=== PATIENT | female | born 1990 | race Caucasian/White ===

== ENCOUNTER 2025-09-11 20:40 | Observation (INO) ==
[2025-09-11] MEDS: KETOROLAC 30 MG/ML VIAL IV ONE (21:45)
[2025-09-11] MEDS: PANTOPRAZOLE 40 MG VIAL IV ONE (21:45)
[2025-09-11] MEDS: 0.9 % SODIUM CHLORIDE 1,000 ML IV ONE (21:46)
[2025-09-11] MEDS: ONDANSETRON 4 MG/2 ML VIAL IV ONE (21:46)
[2025-09-11] MEDS: ACETAMINOPHEN 1,000 MG/100 ML BAG IV ONE (21:49)
[2025-09-11 22:11] LABS: Basophils # (Auto) 0.03 K/mcL (0.00-0.30); Basophils % (Auto) 0.3 % (0.0-2.0); Eosinophils # (Auto) 0.22 K/mcL (0.00-0.70); Eosinophils % (Auto) 2.1 % (0.0-7.0); Hematocrit 43.3 % (34.1-44.9); Hemoglobin 14.1 g/dL (11.2-15.7); Lymphocytes # (Auto) 3.49 K/mcL (1.50-4.80); Lymphocytes % (Auto) 33.8 % (15.5-49.0); Mean Corpuscular HGB Conc 32.6 g/dL (31.0-36.0); Monocytes # (Auto) 0.50 K/mcL (0.10-0.90); Monocytes % (Auto) 4.8 % (1.0-12.0); Neutrophils % (Auto) 58.9 % (38.0-78.0); Platelet Count 307 K/mcL (140-440); RBC 4.80 M/mcL (3.59-5.38); WBC 10.3 K/mcL (4.5-11.0)
[2025-09-11 23:41] LABS: ALT/SGPT 10 U/L (<40); AST/SGOT 13 U/L (<32); Albumin 4.3 gm/dL (3.2-5.2); Albumin/Globulin Ratio 1.5 (1.0-2.3); Alkaline Phosphatase 62 U/L (39-117); Anion Gap 15.0 (8.0-16.0); Bilirubin,Total 0.3 mg/dL (0.1-1.0); Blood Urea Nitrogen 13 mg/dL (6-20); Calcium 9.2 mg/dL (8.6-10.4); Carbon Dioxide 19 mmol/L (22-30); Chloride 105 mmol/L (96-108); Globulin 2.9 gm/dL (2.2-3.7); Glucose 105 mg/dL (70-105); Potassium 3.9 mmol/L (3.3-5.1); Sodium 139 mmol/L (133-145)
[2025-09-12] MEDS ORDERED: HYDROmorphone 0.5 MG/0.5 ML SYRINGE IV PRN (00:55)
[2025-09-12] MEDS: 0.9 % SODIUM CHLORIDE 1,000 ML IV SCH (01:39)
[2025-09-12] MEDS: PIPERACILLIN SODIUM/TAZOBACTAM 4.5 GM in DEXTROSE 5% IN WATER 50 ML IV SCH (02:05)
[2025-09-12] MEDS: LACTATED RINGERS 1,000 ML IV SCH (03:02)
[2025-09-12] MEDS: PIPERACILLIN SODIUM/TAZOBACTAM 4.5 GM in DEXTROSE 5% IN WATER 100 ML IV SCH (07:04)
[2025-09-12] MEDS: POLYETHYLENE GLYCOL 3350 17 GM PACKET PO SCH (08:15)
[2025-09-12] MEDS: GABAPENTIN 300 MG CAPSULE PO SCH ×2 (08:15→20:21)
[2025-09-12] MEDS ORDERED: DEXAMETHASONE 10 MG/ML VIAL ONE (14:47)
[2025-09-12] MEDS ORDERED: PHENYLephrine 1 MG/10 ML SYRINGE (ANEST) ONE (14:47)
[2025-09-12] MEDS ORDERED: ROCURONIUM 10 MG/ML ML IV ONE (14:47)
[2025-09-12] MEDS ORDERED: ONDANSETRON 4 MG/2 ML VIAL ONE (14:47)
[2025-09-12] MEDS ORDERED: KETOROLAC 30 MG/ML VIAL ONE (14:47)
[2025-09-12] MEDS ORDERED: MIDAZOLAM 2 MG/2 ML VIAL ONE (14:48)
[2025-09-12] MEDS ORDERED: ePHEDrine 50 MG/5 ML SYRINGE (ANEST) IV ONE (14:48)
[2025-09-12] MEDS ORDERED: fentaNYL 100 MCG/2 ML VIAL ONE ×2 (14:48→15:12)
[2025-09-12] MEDS ORDERED: PROPOFOL 200 MG/20 ML VIAL IV ONE (14:48)
[2025-09-12] MEDS ORDERED: SUGAMMADEX SODIUM 200 MG/2 ML VIAL IV ONE (15:33)
[2025-09-12] MEDS ORDERED: METOPROLOL TARTRATE 5 MG/5 ML VIAL IV PRN (15:38)
[2025-09-12] MEDS ORDERED: NALOXONE HCL 0.4 MG/ML VIAL IV PRN (15:38)
[2025-09-12] MEDS ORDERED: ePHEDrine 50 MG/ML AMPUL IV PRN (15:38)
[2025-09-12] MEDS ORDERED: MEPERIDINE 25 MG/ML VIAL IV PRN (15:38)
[2025-09-12] MEDS ORDERED: DROPERIDOL 5 MG/2 ML VIAL IV PRN (15:38)
[2025-09-12] MEDS ORDERED: diphenhydrAMINE 50 MG/ML VIAL IV PRN (15:38)
[2025-09-12] MEDS ORDERED: ONDANSETRON 4 MG/2 ML VIAL IV PRN (15:38)
[2025-09-12] MEDS ORDERED: IPRATROPIUM/ALBUTEROL 3 ML AMPUL.NEB NEB PRN (15:38)
[2025-09-12] MEDS: fentaNYL 100 MCG/2 ML VIAL IV PRN (16:00)
[2025-09-12] MEDS: ONDANSETRON 4 MG/2 ML VIAL IV PRN (16:13)
[2025-09-12] MEDS: METHOCARBAMOL 1,000 MG/10 ML VIAL IV ONE (16:32)
[2025-09-12] MEDS: MIRTAZAPINE 15 MG TABLET PO SCH ×2 (20:22)
[2025-09-12] MEDS: SENNOSIDES/DOCUSATE SODIUM 1 TAB TABLET PO SCH (20:22)
[2025-09-12] MEDS: ACETAMINOPHEN 650 MG/65 ML BAG IV PRN (20:24)
[2025-09-12] MEDS ORDERED: GABAPENTIN 300 MG CAPSULE PO SCH (21:00)
[2025-09-13 06:31] LABS: Basophils # (Auto) 0.01 K/mcL (0.00-0.30); Basophils % (Auto) 0.1 % (0.0-2.0); Eosinophils # (Auto) 0.01 K/mcL (0.00-0.70); Eosinophils % (Auto) 0.1 % (0.0-7.0); Hematocrit 37.6 % (34.1-44.9); Hemoglobin 12.4 g/dL (11.2-15.7); Lymphocytes # (Auto) 1.30 K/mcL (1.50-4.80); Lymphocytes % (Auto) 12.4 % (15.5-49.0); Mean Corpuscular HGB Conc 33.0 g/dL (31.0-36.0); Monocytes # (Auto) 0.40 K/mcL (0.10-0.90); Monocytes % (Auto) 3.8 % (1.0-12.0); Neutrophils % (Auto) 83.4 % (38.0-78.0); Platelet Count 273 K/mcL (140-440); RBC 4.15 M/mcL (3.59-5.38); WBC 10.5 K/mcL (4.5-11.0)
[2025-09-13 06:52] LABS: ALT/SGPT 14 U/L (<40); AST/SGOT 14 U/L (<32); Albumin 3.4 gm/dL (3.2-5.2); Albumin/Globulin Ratio 1.4 (1.0-2.3); Alkaline Phosphatase 50 U/L (39-117); Anion Gap 12.0 (8.0-16.0); Bilirubin,Direct 0.2 mg/dL (<0.3); Bilirubin,Total 0.4 mg/dL (0.1-1.0); Blood Urea Nitrogen 9 mg/dL (6-20); Calcium 8.6 mg/dL (8.6-10.4); Carbon Dioxide 19 mmol/L (22-30); Chloride 106 mmol/L (96-108); Globulin 2.5 gm/dL (2.2-3.7); Glucose 135 mg/dL (70-105); Phosphorous 3.2 mg/dL (2.5-4.5); Potassium 3.9 mmol/L (3.3-5.1); Sodium 137 mmol/L (133-145); Triglycerides 125 mg/dL (<150); Uric Acid 2.0 mg/dL (2.5-8.0)
[2025-09-13 17:04] VITALS: TEMP 97.4; O2SAT 100
== END 2025-09-13 16:25 | disposition home or self-care (01) ==
LOC: MEDSUR 20:40 → ED 20:40 → MEDSUR 09-12 01:25
PROVIDERS: ADMIT Family Medicine Adult Medicine; ATTEND Family Medicine Adult Medicine